=== PATIENT | female | born 1980 | race Caucasian/White ===

== ENCOUNTER 2022-11-20 12:22 | Outpatient (CLI) | payer OTHER, SELFPAY | END 2022-11-20 12:23 | disposition home or self-care (01) | PROVIDERS: PCP Internal Medicine; Visit Provider Anesthesiology | DX: N92.0 Excessive and frequent menstruation with regular cycle (principal); Z01.818 Encounter for other preprocedural examination | CPT/HCPCS: 36415; 86850; 86900; 86901 ==

== ENCOUNTER 2022-11-24 00:15 | Day surgery (SDC) | payer OTHER, SELFPAY ==
[2022-11-19 15:42] VITALS: BMI 30.4
--- NOTE | 2022-11-19 15:50 | PC.NURSE ---
Report to the Outpatient Waiting Room, entrance under the green pavilion located off [facility], at time 7:00 on date 11/24/22. Planned Procedure Time: 9:00. Time changes happen often and if your time is changed the preop area will call you the afternoon before. - You and your visitor will be asked to self-screen and do not enter if you have any COVID symptoms. - A mask is optional within the hospital at this time. Patients may have clear liquids (water, carbonated beverages, clear teas, apple juice) until 3 hours prior to surgery (6:00) with a maximum of 20 ounces. - No food from midnight until time of surgery Take the following medications with a SIP of water the morning of surgery: NONE DO NOT STOP ANY OF YOUR OTHER PRESCRIPTION MEDICATIONS PRIOR TO SURGERY ?EXCEPT THE FOLLOWING Medications to discontinue per physician: N/A Date to take last dose: N/A Please no make-up, nail afghan, hairspray, perfume, deodorant, or body powder the day of surgery. No jewelry (including any body piercings) or valuables the day of surgery, leave them at home. Please take a shower or bath the night before, or the morning of, surgery with an antibacterial soap. Wear comfortable, loose fitting clothing. - Jewelry must be removed prior to entering the operating room. Rings and piercings that are not removed may be cut off. - The hospital will not accept responsibility for valuables. - Please leave all valuables, including medications, at home the day of surgery. If you are going home after surgery, a licensed electric lift truck driver must drive you home. - NO public transportation without another adult if you receive anesthesia. - We recommend that an adult stay with you for 24 hours following discharge. - We also recommend that you do not drive, make important decision, drink alcoholic beverages, or take any drugs that were not prescribed by your health care provider for at least 24 hours after your discharge time. Follow any additional instructions given to you from your surgeon. If you or anyone in your household have experienced Covid symptoms in the past week, please notify your surgeon or the nurse liaison at the phone number below for possible testing. Telephone instructions given to PT - BARTOLO BURNETT and asked if any additional questions and then verbalized understanding. Patient advised to call surgeon office or pre surgery nurse liaison [phone] if any additional questions.
[2022-11-24] VITALS (9 sets, daily range): BP systolic 109–131; BP diastolic 69–78; PULSE 71–93; RESP 11–20; TEMP 36.4–37.1; O2SAT 95–100
--- NOTE | 2022-11-24 07:43 | WPDANESEPPF ---
Anes - Initial Pre Proc Eval Procedure: Operation Date: 11/24/22 09:00 Proposed Procedures p Total Laparoscopic Hysterectomy with Bilateral Salpingectomy - Donavan Humphries MD Date/Time: 11/24/22 07:43 Surgeon: Donavan Humphries MD Pre Op Diagnosis: Menorrhagia Patient Data Age: 42 Gender: F Height: 1.73 m Weight: 90.6 kg Allergies Allergy/AdvReac Type Severity Reaction Status Date / Time No Known Allergies Allergy Verified 11/24/22 07:20 Home Medications Medication Instructions Recorded Confirmed Type diphenhydramine HCl 25 mg capsule 25 mg PO HS PRN Allergy Symptoms 11/19/22 11/24/22 History (Benadryl) fexofenadine 180 mg tablet 180 mg PO DAILY 11/19/22 11/24/22 History oxycodone-acetaminophen 5 mg-325 1 tablet PO Q4H PRN pain #25 tabs 11/25/22 Rx mg tablet Patient hx anesthesia problems: none Family hx anesthesia problems: none Results Review: All pre-operative results and documents have been reviewed as part of the pre-operative evaluation. [facility] Surgical History Surgical History (Updated 11/24/22 @ 07:43 by Socrates Andre DO) History of x2 Social History Social History Years smoked: 10 Smoking status: Former smoker Tobacco type: cigarettes Smoking end date: 04/28/22 Alcohol intake: current Alcohol use details: 5/MONTH Substance use: never Substance use type: does not use Living arrangements: with family Spiritual care concerns: No Anes - Eval Final PreProcedure Day of Procedure 11/24/22 07:43 Patient weight: obese Heart: regular rate and rhythm Lungs: clear to auscultation Airway: Mallampati scale class II Neurological: alert and oriented Last oral intake: >/= 8 hours ASA classification: II Emergent: no Anesthetic plan: proceed Anesthesia type and monitoring: general ETT and standard monitoring Results Review: All pre-operative results and documents have been reviewed as part of the pre-operative evaluation. Informed Consent: The patient's anesthetic plan and its attendant risks and benefits were discussed with the patient/family/POA. Questions were solicited and answers provided to the satisfaction of the patient/family/POA.
[2022-11-24] MEDS: LACTATED RINGERS 1,000 ML 30 ML IV CONT ×2 (07:56→10:48)
[2022-11-24] MEDS: MIDAZOLAM HCL (*CRX) 2 MG/2 ML VIAL IV PUSH (07:57)
[2022-11-24] MEDS: ACETAMINOPHEN 500 MG TABLET 1000 MG PO (08:01)
[2022-11-24] MEDS: KETOROLAC 15 MG/ML VIAL (*BKC) IV PUSH (08:03)
[2022-11-24] MEDS: SCOPOLAMINE 1.5 MG PATCH TRANSDERM (08:04)
--- NOTE | 2022-11-24 08:12 | WPDHPUPDATE1 ---
History and Physical Update Update Date/Time: 11/24/22 08:12 History and Physical has been reviewed, including an updated exam of the patient. There are NO changes in the patient's condition. Risks, benefits, and alternatives have been discussed and questions answered. Patient agrees to proceed with procedure.
[2022-11-24] MEDS: ceFAZolin 2 GM/D5W 50 ML 2 GM/50 ML BAG IVPB (08:45)
[2022-11-24] MEDS: ceFAZolin SODIUM 1 GM VIAL (09:41)
--- NOTE | 2022-11-24 10:40 | W.PM.PROC2 ---
Procedure Note - Detailed Date of Procedure 11/24/22 Pre-op Diagnosis Menorrhagia Post-op Diagnosis Same Procedure Performed Total laparoscopic hysterectomy. Surgeon Donavan Humphries MD Anesthesia General Findings Enlarged uterus, normal-appearing ovaries and tubes. Description of Procedure This patient was taken to the operating room. She was prepped and draped in the dorsal lithotomy position after induction of general anesthesia. The uterine manipulator and Regan cup were placed. This was done with a speculum and tenaculum. The speculum was placed. The cervix was grasped with a tenaculum. The stay sutures were placed at 3 and 9:00 a.m.. The stay sutures of 0 Vicryl were brought through the appropriately sized Regan cup. The tip of the JUDITH manipulator was placed in the intrauterine cavity. The cup was slid into place around the cervix and into the fornices. It was locked into place. The sutures were then wrapped around the handle and tied under tension. A 5 mm skin incision was made in the left upper quadrant the abdomen. A 5 mm trocar was inserted into the intrauterine cavity under direct visualization of the scope. Pneumoperitoneum was achieved. A left lower quadrant 11 mm incision was made with scalpel. An 11 mm trocar was inserted into the anterior abdominal cavity under direct visualization the scope. A 5 mm infraumbilical incision was made with a scalpel and a 5 mm trocar was inserted the intra-abdominal cavity under direct visualization of the scope. Bilateral ureteral lysis was performed. This was done from the pelvic brim down to the uterine artery. This was done with careful dissection using sharp and blunt dissection. The fallopian tubes were removed bilaterally. The mesosalpinx around the fallopian tubes were cauterized transected with LigaSure cautery. This was done in a bilateral fashion from the ovary to the uterine cornua. The fallopian tube was transected at the uterine cornu and amputated. The tube was taken out the left lower quadrant trocar site. In a stepwise fashion along the lateral aspects of the uterus the round ligament and broad ligaments were cauterized transected down to the level of the uterine arteries. A bladder flap was created in the bladder was moved distally to the end of the cervix and over the Regan cup. The bilateral uterine arteries were cauterized and transected. Colpotomy was then performed. In a circumferential fashion the vagina was transected using unipolar cautery. The incision was made down on the Regan cup. The uterus and cervix were taken out through the vagina. A pneumo occluder was placed in the vagina. The vaginal cuff was closed with a 0 V lock suture in a running fashion. The pelvis was irrigated with copious amounts antibiotic irrigation. The ureters were again examined and found to be intact and flowing freely under the uterine arteries into the bladder. The bladder was intact. It was examined directly. The vagina was irrigated with Betadine solution after removal of the Pneumo occluder. The patient was taken to recovery room. She was stable condition. Sponge lap and needle counts were correct x2. Drains Yes Packing No Pathology Yes Complications No immediate complications Condition Stable Disposition Floor
[2022-11-24] MEDS: fentaNYL CITRATE INJ (*CRX) 100 MCG/2 ML VIAL 25 MCG IV PUSH ×4 (11:00→11:18)
[2022-11-24] MEDS: ONDANSETRON INJ 4 MG/2 ML VIAL IV PUSH (11:36)
--- NOTE | 2022-11-24 12:02 | PC.NURSE ---
This patient, Gisella Espana, was received from PACU on 11/24/22 at 1202. Patient/family oriented to unit policies and routines
[2022-11-24] MEDS: DEXTROSE 5%/0.45% SOD CHL 1,000 ML 125 ML IV CONT (12:19)
[2022-11-24] MEDS: KETOROLAC 30 MG/ML VIAL (*BKC) IV PUSH (12:21)
[2022-11-24] MEDS: HYDROcodone/acetaminophen (*CRX) 5-325 MG TABLET 1 TAB PO ×2 (16:06→19:42)
[2022-11-24] MEDS: IBUPROFEN 600 MG TABLET PO (19:43)
[2022-11-24] MEDS: HYDROcodone/acetaminophen (*CRX) 10-325 MG TABLET 1 TAB PO (23:42)
[2022-11-25 00:12] VITALS: BP 109/65; PULSE 93; RESP 16; TEMP 36.8; O2SAT 99
[2022-11-25 04:13] VITALS: BP 112/68; PULSE 88; RESP 16; TEMP 36.9; O2SAT 100
[2022-11-25] MEDS: IBUPROFEN 600 MG TABLET PO (05:06)
[2022-11-25] MEDS: HYDROcodone/acetaminophen (*CRX) 5-325 MG TABLET 1 TAB PO ×2 (05:07→09:18)
[2022-11-25 05:29] LABS: Basophils Percent Auto 0.4 % (0.2-1.2); Eosinophils Absolute Auto 0.2 K/mm3 (0-0.3); Eosinophils Percent Auto 1.8 % (0-4.4); Hematocrit 32.2 % (37.0-47.0); Hemoglobin 10.7 g/dL (12.0-15.0); Immature Granulocyte Absolute 0.05 K/mm3 (0.00-0.031); Immature Granulocyte Percent A 0.6 % (0-0.5); Lymphocytes Absolute Auto 2.04 K/mm3 (0.9-3.2); Lymphocytes Percent Auto 22.5 % (18.3-44.2); Mean Corpuscular HGB Conc 33.2 g/dl (32-36); Mean Corpuscular Hemoglobin 31.7 pg (26-34); Mean Corpuscular Volume 95.3 fl (80-100); Mean Platelet Volume 10.5 fl (7.4-10.4); Monocytes Absolute Auto 0.6 K/mm3 (0.1-0.6); Monocytes Percent Auto 6.2 % (2.6-8.5); Neutrophils Absolute Auto 6.2 K/mm3 (1.3-6.7); Neutrophils Percent Auto 68.5 % (45.5-73.1); Platelet Count Result 284 k/mm3 (150-375); Red Blood Count 3.38 M/mm3 (4.2-5.4); Red Cell Distribution Width 11.5 % (11.5-14.5); White Blood Count 9.1 K/mm3 (4.5-10.0)
[2022-11-25 08:30] VITALS: BP 115/63; PULSE 79; RESP 16; TEMP 37.2; O2SAT 98
--- NOTE | 2022-11-25 10:16 | P.PNAN_ITS ---
Anes - Prog Note Post-Op Date/Time: 11/25/22 10:16 Cardiovascular status: normal Respiratory status: normal Airway patency: baseline Mental status: baseline Post-Op hydration status: normal Vital Signs: Last Vital Signs Temp 37.2 C 11/25/22 08:30 Pulse 79 11/25/22 08:30 Resp 16 11/25/22 08:30 BP 115/63 11/25/22 08:30 Pulse Ox 98 11/25/22 08:30 O2 Del Method Room Air 11/24/22 11:45 O2 Flow Rate 6 11/24/22 11:01 Pain Score (VAS): 06/04 I/O: Intake & Output 11/24/22 11/25/22 11/25/22 23:59 07:59 15:59 Intake Total 1560 240 Output Total 350 Balance 1210 240 Laboratory Tests 11/25/22 05:01 11/25/22 05:01 WBC 9.1 RBC 3.38 L Hgb 10.7 L Hct 32.2 L MCV 95.3 MCH 31.7 MCHC 33.2 RDW 11.5 Plt Count 284 MPV 10.5 H Immature Gran % (Auto) 0.6 H Neut % (Auto) 68.5 Lymph % (Auto) 22.5 [place] % (Auto) 6.2 Eos % (Auto) 1.8 Baso % (Auto) 0.4 Lymph # (Auto) 2.04 [place] # (Auto) 0.6 Eos # (Auto) 0.2 Baso # (Auto) 0.0 Abs Immat Gran (auto) 0.05 H Absolute Neuts (auto) 6.2 Absolute Nucleated RBC 0.0 Nucleated RBC % 0.0 Post-procedural complaints: none Patient Feedback: Patient satisfied with anesthetic care.
== END 2022-11-25 10:05 | disposition home or self-care (01) ==
LOC: ANHSURGERY 07:49 → ANHOB2 11:57
PROVIDERS: PCP Internal Medicine; Visit Provider Obstetrics & Gynecology
PROC: 0UT9FZZ Resection of Uterus, Via Natural or Artificial Opening With Percutaneous Endoscopic Assistance (ICD-10-PCS; CPT 58571; principal; 2022-11-24 09:00)
DX: N92.0 Excessive and frequent menstruation with regular cycle (principal); N80.03 Adenomyosis of the uterus; N80.201 Endometriosis of right fallopian tube, unspecified depth; Z87.891 Personal history of nicotine dependence; E66.9 Obesity, unspecified; Z68.30 Body mass index [BMI] 30.0-30.9, adult
CPT/HCPCS: 58571; 36415; 85025; 86850; 86900; 86901; 88307; 99199; A9270; J0690; J1100; J1170; J1885; J2250; J2405; J2704; J2710; J3010; J7030; J7120